=== PATIENT | female | born 1945 | race Caucasian/White ===

== ENCOUNTER 2023-05-09 07:28 | Day surgery (SDC) | payer MEDICARE ==
[2023-05-07 14:00] VITALS: BP 160/69; PULSE 69; RESP 17
[~2023-05-09] VITALS: Ht 167.6 cm; Wt 67.1 kg
[2023-05-09] VITALS (15 sets, daily range): BP systolic 100–161; BP diastolic 58–90; PULSE 51–78; RESP 12–16
[~2023-05-09 07:28] MED LIST: AMLO-257 PO; LISI5TAB21 PO; MV-M1CAP26 PO; PANT40TA54 PO; VITAMIN D PO; [UNRECOGNIZED DRUG - OTHER] PO
[2023-05-09] MEDS ORDERED: PROPOFOL 10 MG/ML 20ML VIAL IV ONE (09:58)
[2023-05-09] MEDS ORDERED: LIDOCAINE HCL 1% 20 ML VIAL ONE (09:58)
== END 2023-05-09 11:45 | disposition home or self-care (01) ==
LOC: ENDO 07:28 → DAH 07:28 → ENDO 11:45
PROVIDERS: ATTEND Internal Medicine
DX: R93.5 Abnormal findings on diagnostic imaging of other abdominal regions, including retroperitoneum (principal); K29.50 Unspecified chronic gastritis without bleeding; K44.9 Diaphragmatic hernia without obstruction or gangrene; K86.2 Cyst of pancreas; K86.9 Disease of pancreas, unspecified; K21.00 Gastro-esophageal reflux disease with esophagitis, without bleeding; R63.4 Abnormal weight loss; I10 Essential (primary) hypertension; F41.9 Anxiety disorder, unspecified; K64.1 Second degree hemorrhoids; I67.89 Other cerebrovascular disease; Z83.3 Family history of diabetes mellitus; Z82.5 Family history of asthma and other chronic lower respiratory diseases; Z82.3 Family history of stroke; Z80.9 Family history of malignant neoplasm, unspecified; Z88.6 Allergy status to analgesic agent; Z88.8 Allergy status to other drugs, medicaments and biological substances; Z82.49 Family history of ischemic heart disease and other diseases of the circulatory system; Z79.899 Other long term (current) drug therapy; Z90.710 Acquired absence of both cervix and uterus; Z98.890 Other specified postprocedural states
CPT/HCPCS: 93005; 43259; 43239; J2704; A4620; A4215 ×2; A4223; A7002; A4222; A4221; A4663; A4216; J7030; A4606; J3490

== ENCOUNTER → 2023-07-19 | Outpatient (CLI) | payer OTHER | END | disposition home or self-care (01) | LOC: OIH 10:24 | PROVIDERS: ATTEND Family Medicine | DX: Z13.6 Encounter for screening for cardiovascular disorders (principal) | CPT/HCPCS: 75571 ==

== ENCOUNTER 2024-01-19 22:24 | Emergency (ER) | payer MEDICARE ==
[~2024-01-19] VITALS: Ht 167.6 cm; Wt 65.8 kg
[2024-01-19 22:43] LABS: BASOPHILS # (AUTO) 0.11 K/uL (0.00-0.20); BASOPHILS % (AUTO) 0.9 % (0.0-5.0); EOSINOPHILS # (AUTO) 0.06 K/uL (0.00-0.70); EOSINOPHILS % (AUTO) 0.5 % (0.0-8.0); IMMATURE GRANULOCYTE ABSOLUTE 0.04 K/uL (0-1); LYMPHOCYTES # (AUTO) 2.4 K/uL (1.0-4.8); LYMPHOCYTES % (AUTO) 19.3 % (21.0-51.0); MEAN CORPUSCULAR HGB CONC 36.3 g/dL (32.0-36.0); MEAN CORPUSCULAR VOLUME 85.5 fL (79-99); MONOCYTES # (AUTO) 0.5 K/uL (0.1-1.0); MONOCYTES % (AUTO) 4.4 % (3.0-13.0); NEUTROPHILS # (AUTO) 9.2 K/uL (1.8-7.7); NEUTROPHILS % (AUTO) 74.6 % (40.0-77.0); PLATELET COUNT (AUTO) 285 K/uL (130-400); RED BLOOD CELL COUNT(AUTO) 4.68 MIL/uL (4.00-5.50); WHITE BLOOD COUNT (AUTO) 12.4 K/uL (4.8-10.8)
[2024-01-19] MEDS: ONDANSETRON 4MG INJ IVP ONE (22:46)
[2024-01-19 22:51] LABS: CREATININE 1.2 mg/dL (0.5-1.0); POTASSIUM 3.8 mmol/L (3.5-5.1)
[2024-01-19 22:53] LABS: PROTHROMBIN TIME 10.8 SEC (9.6-11.6)
[2024-01-19 22:54] LABS: PARTIAL THROMBOPLASTIN TIME 23.4 SEC (26.3-35.5)
[2024-01-19 22:58] LABS: ALBUMIN 3.9 g/dL (3.5-5.0); BILIRUBIN,TOTAL 0.7 mg/dL (0.2-1.0); TOTAL PROTEIN, SERUM 7.6 g/dL (6.0-8.3)
[2024-01-19] MEDS: KETOROLAC 30MG VIAL (30MG/ML) IVP ONE (23:13)
[2024-01-19] MEDS: 0.9%NACL 1000ML 1,000 ML IV ONE (23:15)
[2024-01-19] MEDS: PANTOPRAZOLE 40 MG/VIAL IVP ONE (23:15)
[2024-01-20 00:25] LABS: APPEARANCE,URINE CLOUDY (CLEAR); BILIRUBIN,URINE NEGATIVE (NEGATIVE); COLOR,URINE LIGHT-YELLOW (YELLOW); GLUCOSE, URINE (UA) NEGATIVE (NEGATIVE); KETONES,URINE 40 mg/dL (NEGATIVE); LEUKOCYTE ESTERASE ,URINE 250 Leu/uL (NEGATIVE); NITRATE,URINE NEGATIVE (NEGATIVE); OCCULT BLOOD,URINE SMALL (NEGATIVE); PH,URINE 6.5 (5.0-8.0); PROTEIN,URINE 10 mg/dL (NEGATIVE); UROBILINOGEN,URINE 0.2 mg/dL (0.2-1.0)
[2024-01-20 00:40] LABS: ADD UA MICROSCOPIC YES
[2024-01-20 00:47] LABS: BACTERIA,URINE MANY /HPF (None Seen); SQUAMOUS EPITHELIAL CELL,UR RARE /HPF (0-2)
[2024-01-20] MEDS: CEFTRIAXONE 1G VIAL IVPB ONE (01:16)
[2024-01-20] MEDS: TAMSULOSIN HCL 0.4 MG CAP.ER.24H PO ONE (01:37)
[2024-01-20 05:17] VITALS: BP 115/58; PULSE 92; RESP 17; O2SAT 96
== END 2024-01-20 05:17 | disposition short-term general hospital (02) ==
LOC: EDH 22:24
DX: N13.2 Hydronephrosis with renal and ureteral calculous obstruction (principal); D72.89 Other specified disorders of white blood cells; N39.0 Urinary tract infection, site not specified; R11.2 Nausea with vomiting, unspecified; I10 Essential (primary) hypertension; Z87.442 Personal history of urinary calculi; Z88.5 Allergy status to narcotic agent; Z88.6 Allergy status to analgesic agent; Z88.8 Allergy status to other drugs, medicaments and biological substances; Z79.899 Other long term (current) drug therapy; Z86.73 Personal history of transient ischemic attack (TIA), and cerebral infarction without residual deficits; Z98.890 Other specified postprocedural states; Z90.49 Acquired absence of other specified parts of digestive tract
CPT/HCPCS: 99285; 84484; 80053; 83690; 85025; 85610; 85730; 87086 ×2; 87186; 81001; 36415; 71045; 74176; 96374; 96375 ×2; 93005; J7030; J2405; J1885; J2470; J0696

== ENCOUNTER → 2025-01-13 | Outpatient (CLI) | payer MEDICARE ==
[~2025-01-13] MED LIST changes: +IOHEXOL-350 75 ML VIAL IV ONE
--- NOTE | 2025-01-14 05:16 | HMCIMG ---
EXAM: CT Abdomen without and with IV contrast (triple phase). CLINICAL HISTORY: Pancreatic cyst. TECHNIQUE: Pre and post-contrast thin collimated axial CT images of the abdomen were obtained with sagittal and coronal reformatted images also submitted. CT scan is done according to ALARA (As Low As Reasonably Achievable). Pancreatic protocol. COMPARISON: CT abdomen and pelvis dated 01/19/2024. FINDINGS: The included lungs are clear. 2.9 mm focal calcification in the dependent portion of the gallbladder fundus, likely gallbladder calculi or wall calcification, recommend ultrasound of the gallbladder for further evaluation. 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 No focal abnormality within the liver, spleen, or adrenals. Mildly dilated extrarenal pelvis bilaterally. No renal calculus or cyst is evident. 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 Tiny hiatus hernia. Uncomplicated duodenal diverticula. No obvious bowel wall thickening, dilatation, or obstruction. Unremarkable appendix. Mild calcific atherosclerotic disease in the abdominal aorta and its branches. No pathological lymphadenopathy in the abdomen or pelvis. No ascites or pneumoperitoneum. No acute bony abnormality is evident. Degenerative osseous changes. 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 2.9 mm focal calcification in the dependent portion of the gallbladder fundus, likely gallbladder calculi or wall calcification, recommend ultrasound of the gallbladder for further evaluation. Mildly dilated extrarenal pelvis bilaterally. 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 Tiny hiatus hernia. Uncomplicated duodenal diverticula. Interval improvement in the previously noted right renal hydroureteronephrosis. The remaining findings are grossly unchanged. /Loulou
== END | disposition home or self-care (01) ==
LOC: RAH 07:44
PROVIDERS: ATTEND Internal Medicine Gastroenterology
DX: K57.10 Diverticulosis of small intestine without perforation or abscess without bleeding (principal); K86.2 Cyst of pancreas; I72.8 Aneurysm of other specified arteries; K82.8 Other specified diseases of gallbladder; D73.89 Other diseases of spleen; K44.9 Diaphragmatic hernia without obstruction or gangrene; I70.0 Atherosclerosis of aorta
CPT/HCPCS: 74170; Q9967